=== PATIENT | female | born 1980 | race Hispanic/Latino ===

== ENCOUNTER 2018-01-25 19:51 | Emergency (ER) | payer SELFPAY ==
[2018-01-25 20:38] LABS: APPEARANCE,URINE Turbid (CLEAR); BILIRUBIN,URINE Small (NEGATIVE); GLUCOSE, URINE (UA) Negative (NEGATIVE); KETONES,URINE Negative (NEGATIVE); LEUKOCYTE ESTERASE ,URINE Small (NEGATIVE); NITRATE,URINE Negative (NEGATIVE); OCCULT BLOOD,URINE Large (NEGATIVE); PROTEIN,URINE POS 2+ (NEGATIVE)
[2018-01-25 20:40] LABS: COLOR,URINE Brown (YELLOW); HCG,QUAL RESULT NEGATIVE (NEGATIVE)
[2018-01-25 20:48] LABS: RBC,URINE Full Field /HPF (0-1)
[2018-01-25 20:49] LABS: BACTERIA,URINE Rare /HPF (None Seen); SQUAMOUS EPITHELIAL CELL,UR None Seen /HPF (0-2)
[2018-01-25] MEDS ORDERED: FAMOTIDINE 20MG TAB 20 MG TAB ONE (21:00)
[2018-01-25 21:40] LABS: BASOPHILS % (AUTO) 0.5 % (0.0-5.0); EOSINOPHILS % (AUTO) 0.6 % (0.0-8.0); HEMATOCRIT 37.1 % (36-48); LYMPHOCYTES % (AUTO) 27.3 % (21.0-51.0); MEAN CORPUSCULAR HEMOGLOBIN 25.3 pg (27.0-33.0); MEAN CORPUSCULAR HGB CONC 32.8 g/dL (32.0-36.0); MEAN CORPUSCULAR VOLUME 77.1 fL (79-99); MONOCYTES % (AUTO) 6.4 % (3.0-13.0); NEUTROPHILS % (AUTO) 65.2 % (40.0-77.0); PLATELET COUNT (AUTO) 314 K/uL (130-400); RED BLOOD CELL COUNT(AUTO) 4.81 MIL/uL (4.00-5.50); RED CELL DISTRIBUTION WIDTH 14.6 % (11.0-15.5); WHITE BLOOD COUNT (AUTO) 10.6 K/uL (4.8-10.8)
[2018-01-25 21:50] LABS: CREATININE 0.6 mg/dL (0.5-1.5); POTASSIUM 4.3 mmol/L (3.5-5.1)
[2018-01-25 21:54] LABS: ALBUMIN 3.6 g/dL (3.5-5.0); BILIRUBIN,DIRECT 0.1 mg/dL (0.0-0.3); BILIRUBIN,TOTAL 0.3 mg/dL (0.2-1.0); TOTAL PROTEIN, SERUM 7.9 g/dL (6.0-8.3)
== END 2018-01-25 23:40 | disposition home or self-care (01) ==
LOC: EDH 19:51
DX: K80.80 Other cholelithiasis without obstruction (principal)
CPT/HCPCS: 36415; 74176; 76705; 80048; 80076; 81001; 81025; 83690; 85025

== ENCOUNTER 2018-02-18 15:45 | Emergency (ER) | payer SELFPAY ==
[2018-02-18] MEDS ORDERED: SODIUM CHLORIDE 0.9% 1000ML 1,000 ML IV ONE (16:18)
[2018-02-18] MEDS ORDERED: KETOROLAC TROMETHAMINE 30MG/ML ONE (16:18)
[2018-02-18] MEDS ORDERED: ONDANSETRON HCL 4 MG/2 ML VIAL ONE (16:18)
[2018-02-18 16:23] LABS: BASOPHILS % (AUTO) 0.6 % (0.0-5.0); EOSINOPHILS % (AUTO) 0.9 % (0.0-8.0); HEMATOCRIT 36.8 % (36-48); LYMPHOCYTES % (AUTO) 16.4 % (21.0-51.0); MEAN CORPUSCULAR HEMOGLOBIN 24.7 pg (27.0-33.0); MEAN CORPUSCULAR HGB CONC 32.4 g/dL (32.0-36.0); MEAN CORPUSCULAR VOLUME 76.2 fL (79-99); MONOCYTES % (AUTO) 4.9 % (3.0-13.0); NEUTROPHILS % (AUTO) 77.2 % (40.0-77.0); PLATELET COUNT (AUTO) 331 K/uL (130-400); RED BLOOD CELL COUNT(AUTO) 4.82 MIL/uL (4.00-5.50); RED CELL DISTRIBUTION WIDTH 14.1 % (11.0-15.5); WHITE BLOOD COUNT (AUTO) 12.1 K/uL (4.8-10.8)
[2018-02-18 16:32] LABS: APPEARANCE,URINE Cloudy (CLEAR); BILIRUBIN,URINE Negative (NEGATIVE); COLOR,URINE Dark Yellow (YELLOW); GLUCOSE, URINE (UA) Negative (NEGATIVE); KETONES,URINE Negative (NEGATIVE); LEUKOCYTE ESTERASE ,URINE Trace (NEGATIVE); NITRATE,URINE Negative (NEGATIVE); OCCULT BLOOD,URINE Large (NEGATIVE); PH,URINE 6.5 (5.0-8.0); PROTEIN,URINE POS 1+ (NEGATIVE)
[2018-02-18 16:34] LABS: HCG,QUAL RESULT NEGATIVE (NEGATIVE)
[2018-02-18 16:38] LABS: CREATININE 0.6 mg/dL (0.5-1.5); POTASSIUM 3.9 mmol/L (3.5-5.1)
[2018-02-18 16:43] LABS: ALBUMIN 3.7 g/dL (3.5-5.0); BILIRUBIN,TOTAL 0.4 mg/dL (0.2-1.0); TOTAL PROTEIN, SERUM 8.1 g/dL (6.0-8.3)
[2018-02-18 16:43] LABS: BACTERIA,URINE Few /HPF (None Seen); SQUAMOUS EPITHELIAL CELL,UR 0-2 /HPF (0-2)
[2018-02-18] MEDS ORDERED: MORPHINE SULFATE 4 MG/1ML SYG ONE (17:51)
== END 2018-02-18 19:12 | disposition home or self-care (01) ==
LOC: EDH 15:45
DX: N20.0 Calculus of kidney (principal); Z98.890 Other specified postprocedural states; Z79.899 Other long term (current) drug therapy
CPT/HCPCS: 36415; 74176; 80053; 81001; 81025; 85025; 96374 ×2; 96375; 99285; J1885; J2270; J2405; J7030

== ENCOUNTER 2018-02-20 22:20 | Emergency (ER) | payer SELFPAY ==
[2018-02-20] MEDS ORDERED: DEXAMETHASONE SOD PHOSPHATE 10MG/ML 1ML VIAL ONE (22:33)
[2018-02-20] MEDS ORDERED: GUAIFENESIN SUGAR-FREE 100 MG/5 ML UDCUP ONE (22:33)
[2018-02-20] MEDS ORDERED: BENZONATATE 100 MG CAPSULE PO ONE (22:34)
[2018-02-20] MEDS ORDERED: IPRATROPIUM/ALBUTEROL SULFATE 3 ML SOLUTION IH ONE (22:41)
== END 2018-02-21 00:22 | disposition home or self-care (01) ==
LOC: EDH 22:20
DX: J20.9 Acute bronchitis, unspecified (principal); Z98.890 Other specified postprocedural states
CPT/HCPCS: 71046; 94640; 96372; 99284; J1100

== ENCOUNTER 2018-07-14 00:19 | Emergency (ER) | payer OTHER | END 2018-07-14 02:31 | disposition home or self-care (01) | LOC: EDH 00:19 | DX: J02.9 Acute pharyngitis, unspecified (principal); N64.9 Disorder of breast, unspecified | CPT/HCPCS: 87804; 87880 ==

== ENCOUNTER 2018-08-12 20:14 | Emergency (ER) | payer OTHER | END 2018-08-12 21:37 | disposition home or self-care (01) | LOC: EDH 20:14 | DX: S93.402A Sprain of unspecified ligament of left ankle, initial encounter (principal); Z72.0 Tobacco use; X58.XXXA Exposure to other specified factors, initial encounter; Y93.89 Activity, other specified; Y92.098 Other place in other non-institutional residence as the place of occurrence of the external cause; Y99.8 Other external cause status | CPT/HCPCS: 73610 ==

== ENCOUNTER 2018-11-04 14:26 | Emergency (ER) | payer OTHER ==
[2018-11-04] MEDS ORDERED: DEXTROSE 10%-WATER 1,000 ML IV ONE (14:48)
[2018-11-04] MEDS ORDERED: LIDOCAINE HCL 1% 20 ML VIAL ONE (14:50)
== END 2018-11-04 16:10 | disposition home or self-care (01) ==
LOC: EDH 14:26
DX: S61.215A Laceration without foreign body of left ring finger without damage to nail, initial encounter (principal); Z98.890 Other specified postprocedural states; X58.XXXA Exposure to other specified factors, initial encounter; Y93.G3 Activity, cooking and baking; Y92.098 Other place in other non-institutional residence as the place of occurrence of the external cause; Y99.8 Other external cause status
CPT/HCPCS: 12001; 73140; 99283; J3490

== ENCOUNTER 2018-12-24 10:28 | Emergency (ER) | payer SELFPAY | END 2018-12-24 11:07 | disposition home or self-care (01) | LOC: EDH 10:28 | DX: G57.01 Lesion of sciatic nerve, right lower limb (principal) | CPT/HCPCS: 99281 ==

== ENCOUNTER 2019-03-31 00:29 | Emergency (ER) | payer OTHER ==
[2019-03-31] MEDS ORDERED: DICYCLOMINE HCL 10 MG/ML 2ML AMP IM ONE (01:06)
[2019-03-31] MEDS ORDERED: ONDANSETRON HCL 4 MG/2 ML VIAL ONE (01:06)
[2019-03-31 01:07] LABS: BASOPHILS % (AUTO) 0.6 % (0.0-5.0); HEMATOCRIT 38.2 % (36-48); LYMPHOCYTES % (AUTO) 28.1 % (21.0-51.0); MEAN CORPUSCULAR HEMOGLOBIN 26.4 pg (27.0-33.0); MEAN CORPUSCULAR HGB CONC 32.7 g/dL (32.0-36.0); MEAN CORPUSCULAR VOLUME 80.6 fL (79-99); MONOCYTES % (AUTO) 9.6 % (3.0-13.0); NEUTROPHILS % (AUTO) 60.7 % (40.0-77.0); PLATELET COUNT (AUTO) 247 K/uL (130-400); RED BLOOD CELL COUNT(AUTO) 4.74 MIL/uL (4.00-5.50); RED CELL DISTRIBUTION WIDTH 14.3 % (11.0-15.5); WHITE BLOOD COUNT (AUTO) 7.9 K/uL (4.8-10.8)
[2019-03-31] MEDS ORDERED: SODIUM CHLORIDE 0.9% 1000ML 1,000 ML IV ONE (01:07)
[2019-03-31 01:18] LABS: APPEARANCE,URINE Clear (CLEAR); BILIRUBIN,URINE Negative (NEGATIVE); COLOR,URINE Yellow (YELLOW); GLUCOSE, URINE (UA) Negative (NEGATIVE); KETONES,URINE Negative (NEGATIVE); LEUKOCYTE ESTERASE ,URINE Negative (NEGATIVE); NITRATE,URINE Negative (NEGATIVE); OCCULT BLOOD,URINE Trace (NEGATIVE); PH,URINE 5.5 (5.0-8.0); PROTEIN,URINE Negative (NEGATIVE)
[2019-03-31 01:20] LABS: CREATININE 0.5 mg/dL (0.5-1.5); POTASSIUM 3.7 mmol/L (3.5-5.1)
[2019-03-31 01:22] LABS: ALBUMIN 3.2 g/dL (3.5-5.0); BILIRUBIN,DIRECT 0.1 mg/dL (0.0-0.3); BILIRUBIN,TOTAL 0.2 mg/dL (0.2-1.0); TOTAL PROTEIN, SERUM 7.1 g/dL (6.0-8.3)
[2019-03-31 01:27] LABS: BACTERIA,URINE Rare /HPF (None Seen); MUCUS,URINE Few LPF (None Seen); RBC,URINE None Seen /HPF (0-1); SQUAMOUS EPITHELIAL CELL,UR Few /HPF (0-2); WBC,URINE None Seen /HPF (0-1)
== END 2019-03-31 03:09 | disposition home or self-care (01) ==
LOC: EDH 00:29
DX: A09 Infectious gastroenteritis and colitis, unspecified (principal); E86.0 Dehydration; Z98.890 Other specified postprocedural states
CPT/HCPCS: 36415; 80048; 80076; 81001; 83690; 85025; 96361; 96372; 96374; 99285; J0500; J2405; J7030

== ENCOUNTER 2021-05-26 16:31 | Emergency (ER) | payer SELFPAY ==
[~2021-05-26] VITALS: Ht 157.5 cm; Wt 102.1 kg
[2021-05-26] MEDS ORDERED: ACETAMINOPHEN 500 MG TABLET ONE (16:44)
[2021-05-26] MEDS ORDERED: ALBUTEROL INHALER 90MCG/INH IH PRN (17:00)
[2021-05-26] MEDS ORDERED: ACETAMINOPHEN WITH CODEINE 1 TAB TAB PO ONE (17:00)
[2021-05-26] MEDS ORDERED: D-ME1POW16 PO (17:36)
[2021-05-26 18:08] VITALS: BP 147/96
== END 2021-05-26 18:09 | disposition home or self-care (01) ==
LOC: EDH 16:31
DX: B34.9 Viral infection, unspecified (principal); Z20.822 Contact with and (suspected) exposure to COVID-19
CPT/HCPCS: 71045; 87635; 87804 ×2; 87880; 99284; C9803

== ENCOUNTER 2021-05-28 17:49 | Emergency (ER) | payer OTHER ==
[~2021-05-28] VITALS: Ht 157.5 cm; Wt 102.1 kg
[~2021-05-28 17:49] MED LIST: D-ME1POW16 PO
[2021-05-28 20:47] LABS: BASOPHILS % (AUTO) 0.2 % (0.0-5.0); EOSINOPHILS % (AUTO) 1.4 % (0.0-8.0); HEMATOCRIT 42.1 % (36-48); LYMPHOCYTES % (AUTO) 16.9 % (21.0-51.0); MEAN CORPUSCULAR HEMOGLOBIN 25.9 pg (27.0-33.0); MEAN CORPUSCULAR HGB CONC 31.4 g/dL (32.0-36.0); MEAN CORPUSCULAR VOLUME 82.5 fL (79-99); NEUTROPHILS % (AUTO) 74.3 % (40.0-77.0); PLATELET COUNT (AUTO) 199 K/uL (130-400); RED CELL DISTRIBUTION WIDTH 13.8 % (11.0-15.5); WHITE BLOOD COUNT (AUTO) 5.2 K/uL (4.8-10.8)
[2021-05-28] MEDS ORDERED: ACETAMINOPHEN 500 MG TABLET PO ONE (21:00)
[2021-05-28 21:03] LABS: CREATININE 0.8 mg/dL (0.5-1.5); POTASSIUM 3.4 mmol/L (3.5-5.1)
[2021-05-28 21:09] LABS: BILIRUBIN,TOTAL 0.2 mg/dL (0.2-1.0); TOTAL PROTEIN, SERUM 8.9 g/dL (6.0-8.3)
[2021-05-28] MEDS ORDERED: AZITHROMYCIN 250 MG TABLET PO ONE ×2 (21:27→21:30)
[2021-05-28 21:32] LABS: APPEARANCE,URINE Clear (CLEAR); BILIRUBIN,URINE Negative (NEGATIVE); COLOR,URINE Dark Yellow (YELLOW); GLUCOSE, URINE (UA) Negative (NEGATIVE); KETONES,URINE 40 mg/dL (NEGATIVE); LEUKOCYTE ESTERASE ,URINE Negative (NEGATIVE); NITRATE,URINE Negative (NEGATIVE); OCCULT BLOOD,URINE Large (NEGATIVE); PROTEIN,URINE POS 2+ mg/dL (NEGATIVE)
[2021-05-28 21:44] LABS: BACTERIA,URINE Few /HPF (None Seen); MUCUS,URINE Few LPF (None Seen); SQUAMOUS EPITHELIAL CELL,UR Rare /HPF (0-2)
[2021-05-28] MEDS ORDERED: METH4TAB3 PO (22:18)
[2021-05-28] MEDS ORDERED: AZIT500T PO (22:18)
[2021-05-28 22:41] VITALS: BP 118/72
== END 2021-05-28 22:49 | disposition home or self-care (01) ==
LOC: EDH 17:49
DX: J18.9 Pneumonia, unspecified organism (principal); B34.9 Viral infection, unspecified; Z20.822 Contact with and (suspected) exposure to COVID-19; E66.9 Obesity, unspecified; Z68.41 Body mass index [BMI] 40.0-44.9, adult; Z79.52 Long term (current) use of systemic steroids
CPT/HCPCS: 36415; 71045; 80053; 81001; 81025; 83605; 85025; 87040; 87635; 87804 ×2; 93005; 99285; C9803

== ENCOUNTER 2022-01-03 22:31 | Emergency (ER) | payer OTHER ==
[~2022-01-03] VITALS: Ht 154.9 cm; Wt 102.1 kg
[~2022-01-03 22:31] MED LIST changes: +AZIT500T PO; +METH4TAB3 PO
[2022-01-04 00:31] LABS: APPEARANCE,URINE CLOUDY (CLEAR); BILIRUBIN,URINE NEGATIVE (NEGATIVE); COLOR,URINE RED (YELLOW); GLUCOSE, URINE (UA) 100 mg/dL (NEGATIVE); KETONES,URINE 15 mg/dL (NEGATIVE); LEUKOCYTE ESTERASE ,URINE MODERATE (NEGATIVE); NITRATE,URINE POSITIVE (NEGATIVE); OCCULT BLOOD,URINE LARGE (NEGATIVE); PROTEIN,URINE 100 mg/dL (NEGATIVE)
[2022-01-04 00:37] LABS: BASOPHILS % (AUTO) 0.3 % (0.0-5.0); CREATININE 0.6 mg/dL (0.5-1.5); HEMATOCRIT 38.5 % (36-48); LYMPHOCYTES % (AUTO) 27.1 % (21.0-51.0); MEAN CORPUSCULAR HEMOGLOBIN 25.5 pg (27.0-33.0); MEAN CORPUSCULAR HGB CONC 30.6 g/dL (32.0-36.0); MEAN CORPUSCULAR VOLUME 83.2 fL (79-99); MONOCYTES % (AUTO) 6.1 % (3.0-13.0); NEUTROPHILS % (AUTO) 64.9 % (40.0-77.0); PLATELET COUNT (AUTO) 311 K/uL (130-400); POTASSIUM 3.8 mmol/L (3.5-5.1); RED BLOOD CELL COUNT(AUTO) 4.63 MIL/uL (4.00-5.50); RED CELL DISTRIBUTION WIDTH 14.6 % (11.0-15.5)
[2022-01-04 00:42] LABS: BACTERIA,URINE Few /HPF (None Seen); RBC,URINE >100 /HPF (0-1); SQUAMOUS EPITHELIAL CELL,UR 0-2 /HPF (0-2)
[2022-01-04 00:43] LABS: ALBUMIN 3.2 g/dL (3.5-5.0); BILIRUBIN,TOTAL 0.2 mg/dL (0.2-1.0); TOTAL PROTEIN, SERUM 7.1 g/dL (6.0-8.3)
[2022-01-04 02:11] VITALS: BP 132/76
== END 2022-01-04 02:10 | disposition home or self-care (01) ==
LOC: EDH 22:31
DX: M79.89 Other specified soft tissue disorders (principal); R20.8 Other disturbances of skin sensation; M79.605 Pain in left leg; Z79.899 Other long term (current) drug therapy
CPT/HCPCS: 36415; 80053; 81001; 82550; 85025; 87088; 93971

== ENCOUNTER 2024-09-01 14:17 | Emergency (ER) | payer BC ==
[~2024-09-01] VITALS: Ht 157.5 cm; Wt 102.1 kg
--- NOTE | 2024-09-01 14:33 | ERN ---
ED Note History of Present Illness Stated Complaint: ABD PAIN UTI Chief Complaint: Flank Pain Time Seen by MD: 14:18 Time Seen by Midlevel: 14:20 Dictation: 44-year-old female coming in with complaints of dysuria couple of days ago then yesterday about 8:00 a.m. after sexual intercourse she began with left flank pain. Patient denies having any medical history, and surgical history of a C- section x2. Patient denies having any fever, nausea, vomiting or diarrhea. LMP states his in June. Allergies: Coded Allergies: No Known Drug Allergies (Verified Allergy, 04/04/13) Home Meds Active Scripts Methylprednisolone (Medrol) 4 Mg Tab.ds.pk, 4 MG PO AD, #1 PACK Prov:KHANH TAPIA MD 05/28/21 Azithromycin (Zithromax) 500 Mg Tablet, 500 MG PO DAILY, #7 TAB Prov:KHANH TAPIA MD 05/28/21 D-Methorphan/PE/Acetaminophen (Theraflu Ms Severe Cold Pckt) 1 Each Powd.pack, 1 EACH PO QIDP, #20 PACK Prov:ABRAHAM ORTEGA 05/26/21 Past Medical History Past Medical History: No Pertinent History Additional Past Medical Hx: Obesity Surgical History: Other, Surgical History Other: TUBAL LMP: Jun 26, 2024 : 3 Para: 3 Aborts: 0 Review of System Dictation Constitutional: Negative for fever,chills, and weight loss Eyes: Negative for injury, pain,redness, and discharge ENT: Negative for injury,pain or swelling Cardiovascular: Negative for chest pain, palpitations, and edema Respiratory: Negative for shortness of breath, cough, and wheezing, Abdomen/GI: Positive for lower abdominal pain, no nausea, no vomiting, no diarrhea, and no constipation Back: Negative for injury and pain : Negative for injury, bleeding and discharge, complaining of dysuria MS/Extremity: Negative for injury and deformity Skin: Negative for rash, and discoloration Neuro: Negative for headache, weakness, numbness, tingling, and seizure Psych: Negative for suicide ideation, homicidal ideation, and hallucinations Review of Systems: was completed Initial Vital Sign VS Vital Signs Date Time Temp Pulse Resp B/P (MAP) Pulse Ox O2 Delivery O2 Flow Rate FiO2 09/01/24 14:24 99.0 62 20 122/72 99 Room Air 0 Physical Exam Dictation General: awake, alert, NAD Head/Face: Normocephalic, atraumatic Eyes: PERRL, EOMI, vision at baseline ENT: oral cavity clear, TMs clear, no signs of infection Neck: Trachea midline, supple, no nuchal rigidity Cardiovascular: RRR, normal S1/S2, No MRGs, no JVD Respiratory: CTAB, no respiratory distress, No rales or wheezes Abdomen: Soft, non-tender, non-distended, normal bowel sounds, no guarding or rebound. Left CVA tenderness Skin: Warm, dry, normal turgor, no rash MS/Extremity: Pulses equal, no cyanosis, neurovascular intact, FROM Neuro: COAx4, GCS 15, strength 5/5, CN 2-12 intact, normal cerebellar exam, normal gait, Psych: Normal behavior, mood, and affect normal Results (Laboratory/Radiology) Laboratory/Radiology Laboratory Tests Test 09/01/24 14:30 09/01/24 14:38 White Blood Count 12.5 K/uL (4.8-10.8) H Red Blood Count 5.05 MIL/uL (4.00-5.50) Hemoglobin 12.1 g/dL (12.0-16.0) Hematocrit 39.2 % (36-48) Mean Corpuscular Volume 77.6 fL (79-99) L Mean Corpuscular Hemoglobin 24.0 pg (27.0-33.0) L Mean Corpuscular Hemoglobin Concent 30.9 g/dL (32.0-36.0) L Red Cell Distribution Width 14.6 % (11.0-15.5) Platelet Count 312 K/uL (130-400) Mean Platelet Volume 10.7 fL (7.5-10.5) H Immature Granulocyte % (Auto) 0.4 % (0-1) Neutrophils (%) (Auto) 70.5 % (40.0-77.0) Lymphocytes (%) (Auto) 22.3 % (21.0-51.0) Monocytes (%) (Auto) 5.9 % (3.0-13.0) Eosinophils (%) (Auto) 0.6 % (0.0-8.0) Basophils (%) (Auto) 0.3 % (0.0-5.0) Neutrophils # (Auto) 8.8 K/uL (1.8-7.7) H Lymphocytes # (Auto) 2.8 K/uL (1.0-4.8) Monocytes # (Auto) 0.7 K/uL (0.1-1.0) Eosinophils # (Auto) 0.07 K/uL (0.00-0.70) Basophils # (Auto) 0.04 K/uL (0.00-0.20) Absolute Immature Granulocyte (auto 0.05 K/uL (0-1) Nucleated Red Blood Cells 0.0 % (0.0-0.19) Red Blood Cell Morphology See comments Urine HCG, Qualitative NEGATIVE (NEGATIVE) Sodium Level 140 mmol/L (136-145) Potassium Level 3.9 mmol/L (3.5-5.1) Chloride Level 104 mmol/L (101-111) Carbon Dioxide Level 26 mmol/L (21-32) Blood Urea Nitrogen 8 mg/dL (7-18) Creatinine 0.6 mg/dL (0.5-1.0) Glomerular Filtration Rate Calc 114 mL/min (>90) Random Glucose 116 mg/dL (70-105) H Total Calcium 9.0 mg/dL (8.5-10.1) Human Chorionic Gonadotropin, Quant 0 mIU/mL (0-5) Urine Color LIGHT-ORANGE (YELLOW) Urine Appearance CLOUDY (CLEAR) H Urine pH 6.0 (5.0-8.0) Urine Specific Shorter 1.018 (1.001-1.031) Urine Protein 100 mg/dL (NEGATIVE) H Urine Glucose (UA) NEGATIVE mg/dL (NEGATIVE) Urine Ketones 5 mg/dL (NEGATIVE) H Urine Occult Blood LARGE (NEGATIVE) H Urine Nitrate 1+ (NEGATIVE) H Urine Bilirubin NEGATIVE mg/dL (NEGATIVE) Urine Urobilinogen 0.2 mg/dL (0.2-1.0) Urine Leukocyte Esterase 500 Mamdaou/uL (NEGATIVE) H Urine RBC TNTC /HPF (0-1) H Urine WBC TNTC /HPF (0-1) H Urine WBC Clumps (Auto) FEW /HPF (0-1) Urine Squamous Epithelial Cells RARE /HPF (0-2) Urine Bacteria RARE /HPF (None Seen) Urine Yeast FEW /HPF (None Seen) Labs Reviewed?: Yes ED Course ED Course Orders Procedure Category Date Status Time Vital Signs Per CPOE 09/01/24 Transmitted Routine 14:23 Strain All Urine CPOE 09/01/24 Transmitted Output From 14:23 Cbc With Differential LAB 09/01/24 Complete 14:23 Saline Lock Iv CPOE 09/01/24 Transmitted 14:23 Basic Metabolic Panel LAB 09/01/24 Complete 14:23 Ct Abd/Pel Wo Con CT 09/01/24 Resulted Renal/Appy 14:23 ,Urine Test LAB 09/01/24 Complete 14:23 Hcg,Quantitative LAB 09/01/24 Complete 14:29 0.9%Nacl 1000ml (Ns PHA 09/01/24 Complete 1000ml) 14:30 Urinalysis Profile LAB 09/01/24 Complete 15:16 Culture Urine [place] 09/01/24 In Process 15:33 Ceftriaxone 1g Vial PHA 09/01/24 Complete (Rocephine 1g Inj) 15:53 Ketorolac PHA 09/01/24 Complete Tromethamine 15mg/Ml 15:54 Current Medications Medications (Trade) Dose Ordered Sig/Babatunde Route PRN Reason Start Time Stop Time Status Last Admin Dose Admin Ceftriaxone Sodium (ROCEphine 1G INJ) 1 gm ONCE STAT IVPB 09/01/24 15:53 09/01/24 15:55 DC 09/01/24 15:59 Ketorolac Tromethamine (toRADol) 15 mg ONCE STAT IV 09/01/24 15:54 09/01/24 15:55 DC 09/01/24 15:59 Sodium Chloride 1,000 ml @ 1,000 mls/hr Q1H STAT IV 09/01/24 14:30 09/01/24 15:29 DC 09/01/24 14:49 Vital Signs Date Time Temp Pulse Resp B/P (MAP) Pulse Ox O2 Delivery O2 Flow Rate FiO2 09/01/24 14:24 99.0 62 20 122/72 99 Room Air 0 Medical Decision Making MDM MDM: 44-year-old female coming in with complaints of dysuria couple of days ago then yesterday about 8:00 a.m. after sexual intercourse she began with left flank pain. Patient denies having any medical history, and surgical history of a x2. Patient denies having any fever, nausea, vomiting or diarrhea. LMP states his in June.CBC shows leukocytosis of 12, no anemia, no thrombocytopenia. Chemistry shows no electrolyte abnormality. Normal kidney function. UA shows evidence of urinary tract infection. 1 L of fluids, Rocephin, and Toradol given in the emergency room. CT scan without contrast of the abdomen and pelvis shows no evidence of kidney stones or hydronephrosis. Gallstones in the gallbladder. Patient after medication states he feels better. We will prescribe patient Cipro to take at home. Educated on signs and symptoms of when to return back to the ER like fever, nausea, vomiting. Patient verbalized understanding, answered all questions. Differential diagnosis: Acute cystitis, kidney stones, pyelonephritis Rationale: Tests considered and ordered secondary to shared decision making include: Previous outside records reviewed: Old ER visits. Risk of complication and/or morbidity or mortality of patient management: None Medications-Per medication reconciliation Need for hospitalization: Patient does not meet criteria for hospitalization. Need for emergency major/minor surgery: No There are no social concerns with this patient. Prescription drug management Prescriptions will include symptomatic care Patient's prior external medical records from other ER visits were reviewed by me as indicated. Prior testing and results from previous visits were reviewed. Prior tests were taken into account with medical decision making and resource utilization, independent historian/historians were used to obtain complete medical history. I independently interpreted the test that were performed, results were reviewed by me and considered findings on radiology if ordered. Medical management and examination interpretation discussions were had by me with other qualified healthcare professionals as indicated for the patient's care. DX & DISP Disposition: Discharge Departure Impression: Primary Impression: Urinary tract infection Condition: Stable Scripts Ciprofloxacin HCl (Cipro) 500 Mg Tablet 1 TAB PO BID for 10 Days, #20 TAB 0 Refills Prov: JOSE GUADALUPE YODER NP 09/01/24 Additional Instructions: Antibiotics as prescribed, return to the emergency room if you start to develop fever, nausea, vomiting. Follow up with your primary doctor in 1-2 days. Referrals: SELF,REFERRAL (PCP) Time of Disposition: 16:31 I have reviewed the case, and I agree with, Diagnosis and Plan JOSE GUADALUPE YODER NP Sep 01, 2024 14:33
[2024-09-01] MEDS: 0.9%NACL 1000ML 1,000 ML IV STA (14:49)
[2024-09-01 14:52] LABS: BASOPHILS # (AUTO) 0.04 K/uL (0.00-0.20); BASOPHILS % (AUTO) 0.3 % (0.0-5.0); EOSINOPHILS # (AUTO) 0.07 K/uL (0.00-0.70); EOSINOPHILS % (AUTO) 0.6 % (0.0-8.0); HEMATOCRIT 39.2 % (36-48); IMMATURE GRANULOCYTE ABSOLUTE 0.05 K/uL (0-1); LYMPHOCYTES # (AUTO) 2.8 K/uL (1.0-4.8); LYMPHOCYTES % (AUTO) 22.3 % (21.0-51.0); MEAN CORPUSCULAR HGB CONC 30.9 g/dL (32.0-36.0); MEAN CORPUSCULAR VOLUME 77.6 fL (79-99); MONOCYTES # (AUTO) 0.7 K/uL (0.1-1.0); MONOCYTES % (AUTO) 5.9 % (3.0-13.0); NEUTROPHILS # (AUTO) 8.8 K/uL (1.8-7.7); NEUTROPHILS % (AUTO) 70.5 % (40.0-77.0); PLATELET COUNT (AUTO) 312 K/uL (130-400); RED BLOOD CELL COUNT(AUTO) 5.05 MIL/uL (4.00-5.50); RED CELL DISTRIBUTION WIDTH 14.6 % (11.0-15.5); WHITE BLOOD COUNT (AUTO) 12.5 K/uL (4.8-10.8)
[2024-09-01 15:04] LABS: CREATININE 0.6 mg/dL (0.5-1.0); POTASSIUM 3.9 mmol/L (3.5-5.1)
--- NOTE | 2024-09-01 15:10 | HMCIMG ---
CT ABD/PEL WO CON RENAL/APPY HISTORY: Left flank pain COMPARISON: 02/18/2018 TECHNIQUE: Multiple sequential axial images of the abdomen and pelvis were obtained from the dome of the diaphragm through symphysis pubis. Patient was not given contrast through intravenous route. Oral contrast was not given. FINDINGS: No pleural effusion is seen bilaterally. There is no evidence of parenchymal disease or pulmonary nodule of the visualized lower lungs. Degenerative changes of the thoracolumbar spine are present. The heart is not enlarged. Liver measures 18 cm. Gallstones are seen in the contracted gallbladder. The liver, spleen, adrenal glands and pancreas are unremarkable. There is no evidence of hydronephrosis bilaterally. No evidence of renal stone is seen. Fecal material is seen in the colon. There are normal size retroperitoneal and mesenteric lymph nodes. No ascites is seen. No CT evidence of acute appendicitis is seen. Pelvic sidewalls are symmetric bilaterally. Bladder is poorly distended. IMPRESSION: 1. Gallstones in the contracted gallbladder. CT was performed with one or more following dose reduction techniques: automated exposure control, adjustment of the mA and kv according to patient's size, or use of a iterative reconstruction technique.
[2024-09-01 15:30] LABS: APPEARANCE,URINE CLOUDY (CLEAR); BILIRUBIN,URINE NEGATIVE (NEGATIVE); COLOR,URINE LIGHT-ORANGE (YELLOW); GLUCOSE, URINE (UA) NEGATIVE (NEGATIVE); KETONES,URINE 5 mg/dL (NEGATIVE); LEUKOCYTE ESTERASE ,URINE 500 Leu/uL (NEGATIVE); NITRATE,URINE 1+ (NEGATIVE); OCCULT BLOOD,URINE LARGE (NEGATIVE); PROTEIN,URINE 100 mg/dL (NEGATIVE); UROBILINOGEN,URINE 0.2 mg/dL (0.2-1.0)
[2024-09-01 15:33] LABS: ADD UA MICROSCOPIC YES
[2024-09-01 15:35] LABS: BACTERIA,URINE RARE /HPF (None Seen); MUCUS,URINE RARE LPF (None Seen); RBC,URINE TNTC /HPF (0-1); SQUAMOUS EPITHELIAL CELL,UR RARE /HPF (0-2); WBC CLUMP FEW /HPF (0-1); WBC,URINE TNTC /HPF (0-1); YEAST,URINE BUDDING FEW /HPF (None Seen)
[2024-09-01] MEDS: ketOROlac 15MG/ML VIAL (15MG/ML) IV STA (15:59)
[2024-09-01] MEDS: cefTRIAXone 1G VIAL IVPB STA (15:59)
[2024-09-01] MEDS ORDERED: CIPR-278 PO (16:33)
[2024-09-01 16:42] VITALS: BP 124/74; PULSE 74; RESP 16; TEMP 98.7; O2SAT 99
== END 2024-09-01 16:47 | disposition home or self-care (01) ==
LOC: EDH 14:17
DX: N39.0 Urinary tract infection, site not specified (principal); E66.9 Obesity, unspecified; R10.2 Pelvic and perineal pain; Z68.41 Body mass index [BMI] 40.0-44.9, adult
CPT/HCPCS: 99284; 74176; 96365; 96361; 96375; 80048; 84702; 85025; 87086 ×2; 87186; 81001; 81025; 36415; J1885; J7030; J0696